=== PATIENT | female | born 1990 ===

== ENCOUNTER 2020-10-12 10:59 | Emergency (ER) | payer OTHER ==
[~2020-10-12] VITALS: Ht 177.8 cm; Wt 59.0 kg
[2020-10-12] MEDS ORDERED: AMOX-CLAV 875-1 EACH PO (14:29)
[2020-10-12] MEDS ORDERED: MEDROLPACK PO (14:29)
== END 2020-10-12 14:41 | disposition home or self-care (01) ==
LOC: ER 10:59
DX: J06.9 Acute upper respiratory infection, unspecified (principal); Z11.52 Encounter for screening for COVID-19

== ENCOUNTER 2020-11-05 16:17 | Outpatient (CLI) | payer OTHER ==
[~2020-11-05 16:17] MED LIST: AMOX-CLAV 875-1 EACH PO; MEDROLPACK PO
== END 2020-11-05 16:30 | disposition home or self-care (01) ==
LOC: RAD 16:17
PROVIDERS: ATTEND General Practice
DX: M54.5 Low back pain (principal); M25.559 Pain in unspecified hip

== ENCOUNTER 2024-11-14 14:18 | Outpatient (CLI) | payer OTHER | END 2024-11-14 15:22 | disposition home or self-care (01) | LOC: NST 14:18 | PROVIDERS: ATTEND Obstetrics & Gynecology Gynecology | DX: Z34.82 Encounter for supervision of other normal pregnancy, second trimester (principal) ==

== ENCOUNTER 2025-01-27 09:25 | Outpatient (CLI) | payer OTHER | END 2025-01-27 10:10 | disposition home or self-care (01) | LOC: NST 09:25 | PROVIDERS: ATTEND Obstetrics & Gynecology | DX: Z34.83 Encounter for supervision of other normal pregnancy, third trimester (principal) ==

== ENCOUNTER 2025-02-02 14:15 | Inpatient (IN) | payer OTHER ==
[~2025-02-02] VITALS: Ht 177.8 cm; Wt 85.3 kg
[2025-02-07 15:38] VITALS: BP 108/74
[2025-02-07 16:29] LABS: BASO % 0.3 % (0.1-1.2); EOS # 0.03 (0.04-0.54); EOS % 0.5 % (0.7-7.0); LYMPH # 1.23 (1.18-3.74); LYMPH % 19.4 % (19.3-53.1); MEAN PLATELET VOLUME 12.30 fl (9.4-12.4); MONO # 0.47 (0.24-0.82); MONO % 7.4 % (4.7-12.5); NEUT # 4.56 (1.56-6.13); NEUT % 72.1 % (34.0-71.1); RED CELL DISTRIBUTION WIDTH 13.1 % (11.6-14.4)
[2025-02-07 16:34] LABS: URINE APPEARANCE Cloudy; URINE BILIRRUBIN Negative (NEGATIVE); URINE BLOOD Negative; URINE COLOR Dark Yellow; URINE GLUCOSE Negative (NEGATIVE); URINE KETONE 15 (NEGATIVE); URINE LEUKOCYTE Negative; URINE NITRATE Negative; URINE PROTEIN Negative (NEGATIVE); URINE UROBILINOGEN 0.2 E.U./dl
[2025-02-07 16:38] LABS: URINE BACTERIA 476.4 uL (0.0-1933); URINE EPITHELIAL CELLS 29.5 uL (0.0-38.8); URINE RBC 2.4 uL (0.0-20.8); URINE WBC 3.5 uL (0.0-23.2)
[2025-02-07 16:49] LABS: URINE CAST 0.43 uL (0.0-1.40)
[2025-02-07 16:56] LABS: INR < 0.93
[2025-02-07 17:07] LABS: ALT/SGPT 18.0 U/L (12-78); AST/SGOT 19.0 U/L (15-37); BILIRUBIN TOTAL 0.61 mg/dL (0.3-1.2); BUN CREA RATIO 16.0 (7.0-25.0); CREATININE SERUM 0.82 mg/dL (0.55-1.02); GFR 78.88; GLOBULINA 3.6 G/DL (2.4-3.5); GLUCOSE FASTING 126.0 mg/dL (65-100); OSMOLALITY SERUM 281.0 MOSM/KG (275-295)
[2025-02-07] MEDS ORDERED: PRENATA CHEWAB1 EACH PO (17:25)
[2025-02-07] MEDS ORDERED: MORPHINE SULFATE 4 MG/ML CARTRIDGE IV PRN ×2 (17:30→19:15)
[2025-02-07] MEDS ORDERED: RINGERS SOLUTION,LACTATED 1,000 ML IV SCH (17:30)
[2025-02-07] MEDS ORDERED: MISOPROSTOL 25 MCG TABLET VAG ONE (18:45)
[2025-02-07] MEDS ORDERED: FAMOTIDINE/PF 20 MG in 0.9 % SODIUM CHLORIDE 8 ML IV PUSH PRN (19:15)
[2025-02-07 19:50] VITALS: BP 113/70
[2025-02-07 23:57] VITALS: BP 97/52
[2025-02-08] VITALS (9 sets, daily range): BP systolic 104–147; BP diastolic 58–88; O2SAT 100
[2025-02-08] MEDS ORDERED: OXYTOCIN 20 UNITS/500ML RL PIGGYBAG IV ONE (07:14)
[2025-02-08] MEDS ORDERED: OXYTOCIN 500 ML IV ONE (07:30)
[2025-02-08] MEDS ORDERED: PROMETHAZINE HCL 25 MG/ML AMPUL ONE (15:22)
[2025-02-08] MEDS ORDERED: PROMETHAZINE HCL 25 MG/ML AMPUL IV ONE (15:45)
[2025-02-08] MEDS ORDERED: ERYTHROMYCIN BASE OPHT 1GM EACH TUBE OP ONE (18:43)
[2025-02-08] MEDS ORDERED: CHLORHEXIDINE GLUCONATE 120 ML BOTTLE TOP ONE (18:44)
[2025-02-08] MEDS ORDERED: OXYTOCIN 20 UNITS/1000ML RL PIGGYBAG IV ONE (18:44)
[2025-02-08] MEDS ORDERED: LIDOCAINE HCL 1% 10ML VIAL ONE (18:44)
[2025-02-08] MEDS ORDERED: DOCUSATE SODIUM 100MG CAP PO SCH (21:37)
[2025-02-08] MEDS ORDERED: CHLORHEXIDINE GLUCONATE 120 ML BOTTLE TOP SCH (21:45)
[2025-02-08] MEDS ORDERED: OXYTOCIN 1,000 ML IV SCH (21:45)
[2025-02-09 01:21] VITALS: BP 116/68
[2025-02-09 06:20] LABS: BASO % 0.2 % (0.1-1.2); EOS # 0.01 (0.04-0.54); EOS % 0.1 % (0.7-7.0); LYMPH # 1.06 (1.18-3.74); LYMPH % 10.4 % (19.3-53.1); MEAN PLATELET VOLUME 12.10 fl (9.4-12.4); MONO # 0.80 (0.24-0.82); MONO % 7.9 % (4.7-12.5); NEUT # 8.22 (1.56-6.13); NEUT % 80.9 % (34.0-71.1); RED CELL DISTRIBUTION WIDTH 12.7 % (11.6-14.4)
[2025-02-09] MEDS ORDERED: IRON FUM,PS/FOLIC/BCOMP,C NO.9 1 CAP CAPSULE PO SCH (09:00)
[2025-02-09] MEDS ORDERED: PNV,CALCIUM 72/IRON/FOLIC ACID 1 TAB TABLET PO SCH (09:00)
[2025-02-09 09:08] VITALS: BP 119/67
[2025-02-09 19:09] VITALS: BP 116/73
[2025-02-10 01:02] VITALS: BP 108/74
[2025-02-10 08:00] VITALS: BP 121/80
== END 2025-02-10 14:00 | disposition home or self-care (01) | DRG 807 ==
LOC: LDR 02-07 14:15 → OB/GYN 02-07 15:22 → LDR 02-07 15:22 → OB/GYN 02-08 22:17
PROVIDERS: ADMIT Obstetrics & Gynecology; ATTEND Obstetrics & Gynecology Gynecology
PROC: 3E0P7VZ Introduction of Hormone into Female Reproductive, Via Natural or Artificial Opening (ICD-10-PCS; 2025-02-07)
PROC: 4A1HXCZ Monitoring of Products of Conception, Cardiac Rate, External Approach (ICD-10-PCS; 2025-02-07)
PROC: 10E0XZZ Delivery of Products of Conception, External Approach (ICD-10-PCS; principal; 2025-02-08)
PROC: 0KQM0ZZ Repair Perineum Muscle, Open Approach (ICD-10-PCS; 2025-02-08)
PROC: 3E033VJ Introduction of Other Hormone into Peripheral Vein, Percutaneous Approach (ICD-10-PCS; 2025-02-08)
DX: O70.1 Second degree perineal laceration during delivery (principal); Z37.0 Single live birth; Z3A.39 39 weeks gestation of pregnancy

== ENCOUNTER 2025-02-06 09:40 | Outpatient (CLI) | payer OTHER ==
[2025-02-07] MEDS ORDERED: PRENATA CHEWAB1 EACH PO (17:25)
== END 2025-02-06 10:27 | disposition home or self-care (01) ==
LOC: NST 09:40
PROVIDERS: ATTEND Obstetrics & Gynecology Gynecology
DX: Z34.83 Encounter for supervision of other normal pregnancy, third trimester (principal)